=== PATIENT | female | born 1955 | race Caucasian/White ===

== ENCOUNTER → 2016-10-02 | Outpatient (CLI) | payer BC ==
[~2016-10-02] MED LIST: CEPH500C PO; CODCAP PO; DIPH1TAB98 PO; ESOM20CA PO; GARL1TAB13 PO; LUTE15CA PO; MAGN400T6 PO; SELE1TAB10 PO; SENNTAB23 PO; [UNRECOGNIZED DRUG - CODE] PO
--- NOTE | 2016-10-02 09:55 | DIAGNOSTIC IMAGING REPORT ---
RIGHT SHOULDER 3 VIEWS HISTORY: Right shoulder pain. COMPARISON: None. FINDINGS: There is no fracture or dislocation. Soft tissues are unremarkable. The medial clavicle is obscured by the patient's overlapping lead shield. Mild AC joint arthrosis. IMPRESSION: Mild AC joint arthrosis. No fracture or dislocation within the right shoulder. Electronically signed by: Slim Adame M.D. 10/02/2016 9:54 AM Dictated Date/Time: 10/02/2016 9:52 AM
--- NOTE | 2016-10-02 10:10 | DIAGNOSTIC IMAGING REPORT ---
RIGHT FOOT 3 VIEWS CLINICAL HISTORY: Right foot pain. FINDINGS: 3 views of the right foot are compared to study dated 10/05/2014. The skeletal structures are osteopenic. No fracture is seen. Mild arthritic change is noted at the first metatarsophalangeal joint. An os navicularis is incidentally noted. A dorsal calcaneal enthesophyte is observed. Chronic posttraumatic change and postoperative change is seen in the distal tibia and fibula. The overlying soft tissues are within normal limits. IMPRESSION: 1. No acute bony abnormality is seen in the right foot. 2. Osteopenia with mild degenerative as well as postoperative change as above. Electronically signed by: Carlos García M.D. 10/02/2016 10:08 AM Dictated Date/Time: 10/02/2016 10:07 AM
== END | disposition home or self-care (01) ==
LOC: C.RDSM 10:00
PROVIDERS: ATTEND Physician Assistant
DX: M85.871 Other specified disorders of bone density and structure, right ankle and foot (principal); M25.511 Pain in right shoulder

== ENCOUNTER → 2016-10-09 | Outpatient (CLI) | payer BC ==
[~2016-10-09] MED LIST changes: +GADAVIST IV PRN
--- NOTE | 2016-10-09 12:48 | DIAGNOSTIC IMAGING REPORT ---
RIGHT SHOULDER INJECTION UNDER FLUOROSCOPIC GUIDANCE CLINICAL HISTORY: Right shoulder pain. Injection for MR arthrogram. PROCEDURE: The risks, benefits, and alternatives to the procedure were discussed with the patient. Written informed consent was obtained. The patient was placed supine on the fluoroscopy table, and a right shoulder injection was performed under fluoroscopic guidance. The area was prepped and draped in the usual sterile fashion. The skin and soft tissues anesthetized with local 1% lidocaine. The right shoulder joint was accessed utilizing a 22-gauge needle, and approximately 6 cc of a mixture of gadolinium contrast, Optiray 300, and saline was injected into the joint space under fluoroscopic guidance. There was normal distention of the capsule. The procedure was well tolerated and without immediate complication. The patient was then transferred to MRI for MR arthrography. FLUOROSCOPY TIME: 14 seconds IMPRESSION: Unremarkable injection of the right shoulder under fluoroscopic guidance. Electronically signed by: Carlos García M.D. 10/09/2016 12:47 PM Dictated Date/Time: 10/09/2016 12:46 PM
--- NOTE | 2016-10-09 13:30 | DIAGNOSTIC IMAGING REPORT ---
POST GADOLINIUM MRI THE RIGHT SHOULDER CLINICAL HISTORY: Regressive right shoulder pain COMPARISON STUDY: Conventional radiographic study dated 10/02/2016 FINDINGS: There are no areas of marrow replacement to indicate occult fracture or bone bruise. The bicipital tendon appears normal. There is a sublabral foramen. There is a Moo complex present. There is contrast present within the subacromial bursa indicative of a full-thickness rotator cuff tear. There is irregularity of the undersurface of the supraspinatus and infraspinatus tendons. A full-thickness tear is visualized at the supraspinous footplate. There is mild articular irregularity of the superior lateral margin of the humeral head. No labral tears are visualized. IMPRESSION: 1. No evidence of occult fracture 2. No evidence of bicipital tendon tear or dislocation 3. Supraspinatus and infraspinatus tendinopathy with a full-thickness supraspinatus tear at the footplate 4. No evidence of labral tear. Electronically signed by: Jh Polo M.D. 10/09/2016 1:29 PM Dictated Date/Time: 10/09/2016 1:21 PM
== END | disposition home or self-care (01) ==
LOC: C.MRIBC 10:36
PROVIDERS: ATTEND Physician Assistant
DX: M25.511 Pain in right shoulder (principal); M75.41 Impingement syndrome of right shoulder

== ENCOUNTER 2017-01-04 15:22 | Emergency (ER) | payer BC, OTHER ==
[~2017-01-04] VITALS: Ht 162.6 cm; Wt 61.8 kg
[~2017-01-04 15:22] MED LIST changes: -CEPH500C PO; -GADAVIST IV PRN; -MAGN400T6 PO
[2017-01-04] MEDS ORDERED: HYDROmorphone INJ 2 MG/ML SYR/VIAL IV STA ×2 (15:40→17:15)
[2017-01-04] MEDS ORDERED: SODIUM CHLORIDE 0.9% 1000ML 1,000 ML IV ONE (15:40)
[2017-01-04] MEDS ORDERED: KETOROLAC TROMETHAMINE 30 MG/ML VIAL IV STA (15:40)
[2017-01-04] MEDS ORDERED: ACETAMINOPHEN 500 MG TAB PO STA (15:40)
[2017-01-04] MEDS ORDERED: ONDANSETRON INJ 2 MG/ML 2 ML VIAL IV STA (15:40)
[2017-01-04] MEDS ORDERED: PIPERACILLIN/TAZOBACTAM 4.5 GM/100ML D5W IV STA (15:40)
[2017-01-04 15:49] VITALS: O2SAT 98; Ht 162.6 cm; Wt 61.8 kg
--- NOTE | 2017-01-04 15:57 | DIAGNOSTIC IMAGING REPORT ---
CHEST ONE VIEW PORTABLE CLINICAL HISTORY: Sepsis dyspnea COMPARISON STUDY: 05/27/2015 FINDINGS: The bones soft tissues and hemidiaphragms are normal. The cardiomediastinal silhouette is normal. The lungs are clear. The pulmonary vasculature is normal. IMPRESSION: Negative chest. Electronically signed by: Tej Francis M.D. 01/04/2017 3:56 PM Dictated Date/Time: 01/04/2017 3:56 PM
[2017-01-04 16:23] LABS: BASO % 0.1 %; BASO ABS # 0.01 K/uL (0-0.2); COMPLETE YES; EOS % 0.2 %; IG% 0.1 %; LYMPH ABS # 1.25 K/uL (1.2-3.4); MEAN CELL VOLUME 87.4 fL (80-100); MEAN CORPUSCULAR HEMOGLOBIN 30.7 pg (25-34); MEAN CORPUSCULAR HGB CONC 35.1 g/dl (32-36); MEAN PLATELET VOLUME 10.5 fL (7.4-10.4); MONO % 8.3 %; NEUT % 78.3 %; PLATELET COUNT 161 K/uL (130-400); RED BLOOD COUNT 4.69 M/uL (4.2-5.4); WHITE BLOOD COUNT 9.63 K/uL (4.8-10.8)
[2017-01-04 16:38] LABS: PROTHROMBIN TIME (PATIENT) 10.7 SECONDS (9.0-12.0)
[2017-01-04 16:41] LABS: BUN/CREATININE RATIO 10.5 (10-20); CALCIUM 9.1 mg/dl (8.5-10.1); CREATININE 0.99 mg/dl (0.60-1.20); POTASSIUM 3.8 mmol/L (3.5-5.1)
[2017-01-04 16:44] LABS: ALB/GLOB RATIO 1.5 (0.9-2)
--- NOTE | 2017-01-04 16:55 | DIAGNOSTIC IMAGING REPORT ---
CT SCAN OF THE ABDOMEN AND PELVIS WITHOUT IV CONTRAST CLINICAL HISTORY: Flank pain and hematuria. COMPARISON STUDY: Abdominal CT dated 05/10/2015. TECHNIQUE: CT scan of the abdomen and pelvis is performed from the lung bases to the proximal femora. Images are reviewed in the axial, sagittal, and coronal planes. IV contrast was not administered for this examination as per the referring clinician. Automated dose control exposure was utilized. CT DOSE: 424.94 mGy.cm FINDINGS: Lung bases: The heart is normal in size and without pericardial effusion. The lung bases are clear noting dependent atelectasis. Liver: The unenhanced liver is normal in size, contour, and attenuation. There is no intrahepatic biliary ductal dilatation. Gallbladder: Surgically absent noting clips in the gallbladder fossa. Spleen: Normal in size and attenuation. There is a 10 mm densely calcified splenic artery aneurysm seen on image #67. Pancreas: Unenhanced pancreas is mildly atrophic and grossly unremarkable. Adrenal glands: Unremarkable. Kidneys: The unenhanced kidneys demonstrate mild cortical atrophy and are without hydronephrosis. There is a punctate nonobstructing calculus in the right lower pole. No left renal calculi are identified.. There is no evidence of contour deforming renal mass lesion. Abdominal vasculature: The abdominal aorta is normal in course and caliber noting mild to moderate atherosclerotic calcification. Bowel: The small bowel and colon are normal in course and caliber. There is moderate diverticulosis of the left colon without CT evidence of acute diverticulitis. Mild colonic fecal retention is observed. The appendix is well-visualized and normal. Peritoneum: There is no intraperitoneal free air or abdominal ascites. Lymphadenopathy: None. Pelvic viscera: The bladder, uterus, and adnexa are normal as visualized. Postoperative change is noted in the pelvis. Skeletal structures: The skeletal structures are osteopenic. No lytic or blastic lesions are seen. A hemangioma is incidentally noted in the body of L4. IMPRESSION: 1. There are no acute infectious or inflammatory findings in the abdomen or pelvis. 2. There is a punctate nonobstructing right renal calculus. 3. Moderate diverticulosis of the left colon without CT evidence of acute diverticulitis. 4. There is a 10 mm densely calcified splenic artery aneurysm. 5. Additional findings as above. Electronically signed by: Carlos García M.D. 01/04/2017 4:54 PM Dictated Date/Time: 01/04/2017 4:43 PM
[2017-01-04] MEDS ORDERED: HYDROmorphone INJ 0.5 MG/0.5 ML SYR IV STA (17:27)
[2017-01-04] MEDS ORDERED: MAGN400T6 PO (17:33)
[2017-01-04 17:38] LABS: URINE APPEARANCE CLEAR (CLEAR); URINE BILIRUBIN NEG (NEG); URINE COLOR YELLOW; URINE NITRITE NEG (NEG); URINE SPECIFIC GRAVITY 1.018 (1.000-1.030); UROBILINOGEN NEG (NEG); ZZUR CULT IF INDIC CLEAN CATCH NO
--- NOTE | 2017-01-04 17:41 | EMERGENCY ROOM VISIT NOTE ---
History Report prepared by Matthias: Paramjit Singleton Under the Supervision of: Dr. Carlos Pedersen M.D. First contact with patient: 15:32 Chief Complaint: KIDNEY STONE Stated Complaint: KIDNEY STONES History of Present Illness The patient is a 61 year old female who presents to the Emergency Room with complaints of worsening bilateral flank pain starting 3 weeks ago. She reports her pain as a 9/10 in severity and states the pain is worse on her right side. The patient states that she did not do anything about her pain because she has been in and out of court. She states that she normally sees Dr. Da Silva [facility] for her history of kidney stones and kidney problems, but could not get a hold of him yesterday. The patient states that she went to emergency care today but denies having any treatment done and was told to report to the ED. She reports that she has also been experiencing an intermittent fever for the last few weeks, hematuria, hypertension, and myalgia in her neck and muscles. The patient states that she started having abdominal pain yesterday and went to the bathroom when noticed more blood in her urine. The patient also reports that she went to go to work yesterday but collapsed on her porch due to her pain. She reports that she took a Tylenol for her fever. The patient states that she has been drinking fluid. The patient admits to an allergy to Morphine and Levaquin. She denies any cough or congestion. Source of History: patient Onset: three weeks ago Position: other (bilateral flank) Symptom Intensity: 9/10 Timing: worsening Modifying Factors (Relieving): tylenol Associated Symptoms: No cough Review of Systems See HPI for pertinent positives & negatives. A total of 10 systems reviewed and were otherwise negative. Past Medical & Surgical Medical Problems: (1) Diverticulitis (2) Diverticulosis (3) Gastritis (4) GERD (gastroesophageal reflux disease) (5) Kidney stones (6) Rhinitis Surgical Problems: (1) History of adenoidectomy (2) History of cholecystectomy (3) History of salpingo-oophorectomy (4) Hx of tonsillectomy Social History Smoking Status: Never Smoker Alcohol Use: none Marital Status: Occupation Status: employed Current/Historical Medications Scheduled Beta Carotene (B-Paris-T), 15 MG PO QAM Cephalexin Monohydrate (Keflex), 500 MG PO TID Cod Liver Oil (Cod Liver Oil 1250-135 Unit), 1 TAB PO QAM Garlic ( Garlic), 500 MG PO QAM Lutein-Zeaxanthin (Lutein), 1 TAB PO DAILY Selenium ( Selenium), 1 TAB PO QAM Sennosides-Docusate Sodium (Stool Softener), 1 TAB PO QAM Miscellaneous Medications Magnesium Oxide (Mag-Ox), 400 MG PO Allergies Coded Allergies: Iodinated Contrast Media (Verified Allergy, Intermediate, hives-IVP DYE, ) Latex1 -Allergic Contact Dermititis (Verified Allergy, Mild, , 01/04/17) Morphine (Verified Allergy, Mild, hives, 01/04/17) Quinolones (Verified Allergy, Mild, hives-AVELOX; CIPRO IS OK, 01/04/17) "PATIENT REPORTS NO ALLERGY TO CIPRO" PER SDS ORDER SCANNED 06/08/15 Honey Bee (Verified Allergy, Unknown, hives, 01/04/17) Physical Exam Vital Signs Date Time Temp Pulse Resp B/P (MAP) Pulse Ox O2 Delivery O2 Flow Rate FiO2 01/04/17 18:58 37.5 78 18 118/61 98 01/04/17 18:57 37.5 78 18 118/61 98 Room Air 01/04/17 17:32 81 18 118/61 98 Room Air 01/04/17 15:49 98 Room Air 01/04/17 15:27 38.6 90 18 124/69 98 Room Air Physical Exam GENERAL: Patient is in no acute distress. HEENT: No acute trauma, normocephalic atraumatic, mucous membranes moist, no nasal congestion, no scleral icterus. NECK: No stridor, no adenopathy, no meningismus, trachea is midline. LUNGS: Clear to auscultation bilaterally, no wheeze, no rhonchi, breath sounds equal. HEART: Without murmurs gallops or rubs, regular rate and rhythm. ABDOMEN: Soft, somewhat tender in left lower quadrant, bowel sounds positive, no hernias, no peritonitis. EXTREMITIES: No cyanosis or edema, full range of motion of all the joints without pain or difficulty, no signs for acute trauma. NEUROLOGIC: Oriented x 3, no acute motor or sensory deficits, no focal weakness. SKIN: No rash, no jaundice, no diaphoresis. Medical Decision & Procedures ER Provider Diagnostic Interpretation: Radiology results as stated below per my review and radiologist interpretation: CHEST ONE VIEW PORTABLE CLINICAL HISTORY: Sepsis dyspnea COMPARISON STUDY: 05/27/2015 FINDINGS: The bones soft tissues and hemidiaphragms are normal. The cardiomediastinal silhouette is normal. The lungs are clear. The pulmonary vasculature is normal. IMPRESSION: Negative chest. CT SCAN OF THE ABDOMEN AND PELVIS WITHOUT IV CONTRAST CLINICAL HISTORY: Flank pain and hematuria. COMPARISON STUDY: Abdominal CT dated 05/10/2015. TECHNIQUE: CT scan of the abdomen and pelvis is performed from the lung bases to the proximal femora. Images are reviewed in the axial, sagittal, and coronal planes. IV contrast was not administered for this examination as per the referring clinician. Automated dose control exposure was utilized. CT DOSE: 424.94 mGy.cm FINDINGS: Lung bases: The heart is normal in size and without pericardial effusion. The lung bases are clear noting dependent atelectasis. Liver: The unenhanced liver is normal in size, contour, and attenuation. There is no intrahepatic biliary ductal dilatation. Gallbladder: Surgically absent noting clips in the gallbladder fossa. Spleen: Normal in size and attenuation. There is a 10 mm densely calcified splenic artery aneurysm seen on image #67. Pancreas: Unenhanced pancreas is mildly atrophic and grossly unremarkable. Adrenal glands: Unremarkable. Kidneys: The unenhanced kidneys demonstrate mild cortical atrophy and are without hydronephrosis. There is a punctate nonobstructing calculus in the right lower pole. No left renal calculi are identified.. There is no evidence of contour deforming renal mass lesion. Abdominal vasculature: The abdominal aorta is normal in course and caliber noting mild to moderate atherosclerotic calcification. Bowel: The small bowel and colon are normal in course and caliber. There is moderate diverticulosis of the left colon without CT evidence of acute diverticulitis. Mild colonic fecal retention is observed. The appendix is well-visualized and normal. Peritoneum: There is no intraperitoneal free air or abdominal ascites. Lymphadenopathy: None. Pelvic viscera: The bladder, uterus, and adnexa are normal as visualized. Postoperative change is noted in the pelvis. Skeletal structures: The skeletal structures are osteopenic. No lytic or blastic lesions are seen. A hemangioma is incidentally noted in the body of L4. IMPRESSION: 1. There are no acute infectious or inflammatory findings in the abdomen or pelvis. 2. There is a punctate nonobstructing right renal calculus. 3. Moderate diverticulosis of the left colon without CT evidence of acute diverticulitis. 4. There is a 10 mm densely calcified splenic artery aneurysm. 5. Additional findings as above. Electronically signed by: Carlos García M.D. 01/04/2017 4:54 PM Dictated Date/Time: 01/04/2017 4:43 PM Electronically signed by: Tej Francis M.D. 01/04/2017 3:56 PM Dictated Date/Time: 01/04/2017 3:56 PM Laboratory Results 01/04/17 16:09 Red Blood Count 4.69, Mean Corpuscular Volume 87.4, Mean Corpuscular Hemoglobin 30.7, Mean Corpuscular Hemoglobin Concent 35.1, Mean Platelet Volume 10.5, Neutrophils (%) (Auto) 78.3, Lymphocytes (%) (Auto) 13.0, Monocytes (%) (Auto) 8.3, Eosinophils (%) (Auto) 0.2, Basophils (%) (Auto) 0.1, Neutrophils # (Auto) 7.54, Lymphocytes # (Auto) 1.25, Monocytes # (Auto) 0.80, Eosinophils # (Auto) 0.02, Basophils # (Auto) 0.01 01/04/17 16:09 Test 01/04/17 16:09 01/04/17 16:16 01/04/17 17:20 White Blood Count 9.63 K/uL (4.8-10.8) Red Blood Count 4.69 M/uL (4.2-5.4) Hemoglobin 14.4 g/dL (12.0-16.0) Hematocrit 41.0 % (37-47) Mean Corpuscular Volume 87.4 fL (80-100) Mean Corpuscular Hemoglobin 30.7 pg (25-34) Mean Corpuscular Hemoglobin Concent 35.1 g/dl (32-36) Platelet Count 161 K/uL (130-400) Mean Platelet Volume 10.5 fL (7.4-10.4) Neutrophils (%) (Auto) 78.3 % Lymphocytes (%) (Auto) 13.0 % Monocytes (%) (Auto) 8.3 % Eosinophils (%) (Auto) 0.2 % Basophils (%) (Auto) 0.1 % Neutrophils # (Auto) 7.54 K/uL (1.4-6.5) Lymphocytes # (Auto) 1.25 K/uL (1.2-3.4) Monocytes # (Auto) 0.80 K/uL (0.11-0.59) Eosinophils # (Auto) 0.02 K/uL (0-0.5) Basophils # (Auto) 0.01 K/uL (0-0.2) RDW Standard Deviation 42.6 fL (36.4-46.3) RDW Coefficient of Variation 13.3 % (11.5-14.5) Immature Granulocyte % (Auto) 0.1 % Immature Granulocyte # (Auto) 0.01 K/uL (0.00-0.02) Prothrombin Time 10.7 SECONDS (9.0-12.0) Prothromb Time International Ratio 1.0 (0.9-1.1) Activated Partial Thromboplast Time 26.8 SECONDS (21.0-31.0) Partial Thromboplastin Ratio 1.0 Anion Gap 8.0 mmol/L (3-11) Est Creatinine Clear Calc Drug Dose 50.3 ml/min Estimated GFR () 70.3 Estimated GFR (Non- 60.6 BUN/Creatinine Ratio 10.5 (10-20) Calcium Level 9.1 mg/dl (8.5-10.1) Total Bilirubin 0.8 mg/dl (0.2-1) Aspartate Amino Transf (AST/SGOT) 29 U/L (15-37) Alanine Aminotransferase (ALT/SGPT) 33 U/L (12-78) Alkaline Phosphatase 61 U/L (45-117) Total Protein 6.8 gm/dl (6.4-8.2) Albumin 4.1 gm/dl (3.4-5.0) Globulin 2.7 gm/dl (2.5-4.0) Albumin/Globulin Ratio 1.5 (0.9-2) Bedside Lactic Acid Venous 0.84 mmol/L (0.90-1.70) Urine Color YELLOW Urine Appearance CLEAR (CLEAR) Urine pH 8.0 (4.5-7.5) Urine Specific [place] 1.018 (1.000-1.030) Urine Protein NEG (NEG) Urine Glucose (UA) NEG (NEG) Urine Ketones NEG (NEG) Urine Occult Blood NEG (NEG) Urine Nitrite NEG (NEG) Urine Bilirubin NEG (NEG) Urine Urobilinogen NEG (NEG) Urine Leukocyte Esterase NEG (NEG) Urine WBC (Auto) 1-5 /hpf (0-5) Urine RBC (Auto) 0-4 /hpf (0-4) Urine Hyaline Casts (Auto) 1-5 /lpf (0-5) Urine Epithelial Cells (Auto) 5-10 /lpf (0-5) Urine Bacteria (Auto) NEG (NEG) Laboratory results reviewed by me. Medications Administered Medications (Trade) Dose Ordered Sig/Tono Route Start Time Stop Time Status Last Admin Dose Admin Sodium Chloride 1,000 ml @ 999 mls/hr Q1H1M ONCE IV 01/04/17 15:40 01/04/17 16:40 DC 01/04/17 16:16 999 MLS/HR Piperacillin Sod/ Tazobactam Sod (Zosyn Iv) 4.5 gm ONE STAT IV 01/04/17 15:40 01/04/17 15:45 DC 01/04/17 16:16 4.5 GM Acetaminophen (Tylenol Tab) 1,000 mg NOW STAT PO 01/04/17 15:40 01/04/17 15:45 DC 01/04/17 16:16 1,000 MG Ondansetron HCl (Zofran Inj) 4 mg NOW STAT IV 01/04/17 15:40 01/04/17 15:45 DC 01/04/17 16:17 4 MG Ketorolac Tromethamine (Toradol Inj) 30 mg NOW STAT IV 01/04/17 15:40 01/04/17 15:45 DC 01/04/17 16:18 30 MG Hydromorphone HCl (Dilaudid Inj) 0.5 mg NOW STAT IV 01/04/17 15:40 01/04/17 15:45 DC 01/04/17 16:18 0.5 MG Hydromorphone HCl (Dilaudid Inj) 0.5 mg NOW STAT IV 01/04/17 17:27 01/04/17 17:28 DC 01/04/17 17:31 0.5 MG Cephalexin Monohydrate (Keflex 500MG Home Pack) 1 homepack NOW ONCE PO 01/04/17 18:45 01/04/17 18:46 DC 01/04/17 18:56 1 HOMEPACK ED Course 1538: The patient was evaluated in room A10. A complete history and physical exam was performed. 1540: Dilaudid Injection 0.5 mg IV, Toradol Injection 30 mg IV, Zofran Injection 4 mg IV, Tylenol Tab 1000 mg PO, Zosyn Iv 4.5 mg IV, Sodium Chloride 1000 ml @ 999 mls/hr IV. 1716: I reevaluated the patient and she is resting comfortably. She is waiting on the imaging and lab results. 1727: Dilaudid Injection 0.5 mg IV. 1832: I reevaluated the patient. I discussed results and discharge instructions : She verbalized understanding and agreement. The patient is ready for discharge. Medication Reconciliation: I attest that I have personally reviewed the patient' s current medication list. Blood Pressure Screening: Patient was found to have normal blood pressure on screening and does not require follow-up. 1845: Cephalexin Monohydrate 1 homepack PO. Medical Decision The differential diagnosis includes but is not limited to: renal colic, pneumonia, pyelonephritis, diverticulitis, sepsis or bacteremia, renal failure, electrolyte imbalance, dehydration. There is no leukocytosis or concerning anemia. No significant electrolyte abnormality, kidney failure or hepatitis. Lactic acid level is not elevated making sepsis less likely. Urinalysis does not show infection. Urine culture and blood cultures are pending. Chest film does not show pneumonia or free air. Abdominal and pelvis CT does not show diverticulitis, no acute infectious process within the abdomen or pelvis. The patient was not found to have a ureteral stone or hydronephrosis. The patient received IV saline and oral Tylenol. She was given IV Toradol, IV Zofran and IV Dilaudid. She received IV Zosyn as antibiotic coverage. The patient feels well, I do think she can be discharged and she would like to go home. I'm going to prescribe Keflex for the possibility of a pyelonephritis. Certainly, she may have already passed a ureteral stone however , I was concerned because of the temperature elevation when she presented to the ER. Patient was encouraged to return for worsening symptoms or if not improving. She will follow with her doctors office. Of note, the patient left this ER and drove home, she was told not to drive as she had received narcotic pain medication. She refused to call a ride, and was adamant she was driving home, the charge nurse was advised. The police were contacted. Impression Primary Impression: Fever Additional Impression: Flank pain Scribe Attestation The scribe's documentation has been prepared under my direction and personally reviewed by me in its entirety. I confirm that the note above accurately reflects all work, treatment, procedures, and medical decision making performed by me. Departure Information Dispostion Home / Self-Care Prescriptions Cephalexin Monohydrate (Keflex) 500 Mg Cap 500 MG PO TID for 10 Days, #30 CAP 1 Refill Prov: Carlos Pedersen M.D. 01/04/17 Referrals Lucas Strange M.D. (PCP) Forms HOME CARE DOCUMENTATION FORM, IMPORTANT VISIT INFORMATION Patient Instructions My [facility] Additional Instructions stay well hydrated motrin or tylenol for pain and fever rest keflex 3x per day for 10 days follow with phyllis alvarez for a reheck return for worsening symptoms or if not improving Problem Qualifiers
[2017-01-04 17:54] LABS: MANUAL MICROSCOPIC REQUIRED? NO; REVIEW REQ? NO
[2017-01-04] MEDS ORDERED: CEPH500C PO (18:40)
[2017-01-04] MEDS ORDERED: CEPHALEXIN 500MG HOME PACK 1 EA BTL PO ONE (18:45)
[2017-01-04 18:58] VITALS: BP 118/61; PULSE 78; TEMP 37.5; O2SAT 98
== END 2017-01-04 18:58 | disposition home or self-care (01) ==
LOC: C.EDB 15:24 → C.EDA 18:58
DX: R10.30 Lower abdominal pain, unspecified (principal); R50.9 Fever, unspecified; K21.9 Gastro-esophageal reflux disease without esophagitis; K57.90 Diverticulosis of intestine, part unspecified, without perforation or abscess without bleeding; K57.92 Diverticulitis of intestine, part unspecified, without perforation or abscess without bleeding; Z90.49 Acquired absence of other specified parts of digestive tract; Z79.899 Other long term (current) drug therapy; Z98.890 Other specified postprocedural states; Z88.5 Allergy status to narcotic agent; Z88.8 Allergy status to other drugs, medicaments and biological substances; Z91.040 Latex allergy status; Z91.041 Radiographic dye allergy status

== ENCOUNTER → 2017-08-17 | Outpatient (CLI) | payer OTHER ==
[~2017-08-17] MED LIST changes: +CEPH500C PO; -DIPH1TAB98 PO; -ESOM20CA PO; +MAGN400T6 PO
== END | disposition home or self-care (01) ==
LOC: C.LAB 14:25
PROVIDERS: ATTEND Nurse Practitioner Adult Health
DX: R35.0 Frequency of micturition (principal); R39.15 Urgency of urination; N39.0 Urinary tract infection, site not specified

== ENCOUNTER → 2017-11-13 | Outpatient (CLI) | payer OTHER ==
--- NOTE | 2017-11-13 21:01 | DIAGNOSTIC IMAGING REPORT ---
LUMBAR SPINE W/O CONTRAST CLINICAL HISTORY: 62 years-old Female with LOWER BACK PAIN. Acute low back pain with radiation to the left pelvis. Patient reports acute dysuria COMPARISON: MRI of the pelvis of same day, CT abdomen and pelvis 01/04/2017 TECHNIQUE: Multiplanar, multi sequence MRI of the lumbar spine was performed without intravenous contrast. FINDINGS: No focal bone marrow edema, acute fracture or subluxation. 1.5 cm perineural root sleeve cyst is noted on the left at S1-S2 nicely seen on image 8 of series 5. The conus medullaris terminates at the L1-L2 interspace. Signal within the imaged thoracic spinal cord appears normal. The cauda equina appear to be within normal limits. Study is mildly motion degraded. No aortic aneurysm or adenopathy. No acute process of the imaged abdomen, pelvis or paraspinal tissues. Mild disc desiccation is noted at several levels with relative preservation of the T12-L1 and L5-S1 levels. T12-L1: No central canal or neural foraminal stenosis. L1-L2: No central canal or neural foraminal stenosis. L2-L3: Small circumferential annular disc bulge with mild facet arthrosis and ligamentum flavum thickening. Flattening of the ventral thecal sac without significant central canal narrowing. There is mild right foraminal stenosis. The left foramen is patent. L3-L4: Small circumferential annular disc bulge with mild facet arthrosis and ligamentum flavum thickening. There is mild central canal and mild right foraminal narrowing. Left foramen is generally patent. L4-L5: Small circumferential annular disc bulge favoring the right lateral recess with moderate facet arthrosis and ligamentum flavum thickening. Flattening of the ventral thecal sac without significant central canal narrowing. Mild right foraminal stenosis. Left foramen is patent. L5-S1: Mild facet arthrosis and ligamentum flavum thickening without central canal or foraminal narrowing. IMPRESSION: 1. No acute fracture or focal bone marrow edema. 2. Mild discogenic degenerative changes and facet arthrosis of the lumbar spine, most pronounced at L2-L3 through L4-L5. 3. At L3-L4, there is a small circumferential annular disc bulge with mild facet arthrosis and ligamentum flavum thickening causing mild central canal and mild right foraminal narrowing. 4. 1.5 cm perineural root sleeve cyst on the left at S1-S2. The above report was generated using voice recognition software. It may contain grammatical, syntax or spelling errors. Electronically signed by: Dez Da Silva M.D. 11/13/2017 9:00 PM Dictated Date/Time: 11/13/2017 8:52 PM
--- NOTE | 2017-11-13 21:10 | DIAGNOSTIC IMAGING REPORT ---
PELVIS WITHOUT CONTRAST (MRI) HISTORY: 62 years-old Female [id number] chronic low back pain with urinary incontinence status post prior injury. Radiation to the left pelvis. COMPARISON: MRI lumbar spine of same day, CT abdomen and pelvis 01/04/2017 TECHNIQUE: Multiplanar multisequence MRI of the pelvis was obtained without contrast. 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 Anteflexed uterus. Indeterminate 6 mm cystic focus involves the posterior fundal myometrium. Indeterminate 8 mm cystic focus of the left adnexum. No aortic aneurysm. Iliac vessels appear patent. No acute intrapelvic abnormality identified. No focal soft tissue edema identified. No intramuscular edema or evidence of bursitis. There is only minimal edema about the gluteal insertion sites adjacent to the bilateral greater trochanters suggesting enthesitis. Mild degenerative changes about the bilateral femoral acetabular joints without obvious labral tear identified. No sacral fracture. No erosive changes of the SI joints. The bilateral sciatic nerves appear unremarkable. There is trace fluid at the right hamstring attachment site adjacent to the ischial tuberosity. IMPRESSION: 1. No acute abnormality of the pelvis identified. 2. Mild enthesitis of the bilateral gluteal insertion sites adjacent to the greater trochanters. Trace fluid is noted at the right hamstring attachment site about the ischial tuberosity suggesting tendinosis. 3. No focal bone marrow or intramuscular edema. 4. Colonic diverticulosis. The above report was generated using voice recognition software. It may contain grammatical, syntax or spelling errors. Electronically signed by: Dez Da Silva M.D. 11/13/2017 9:09 PM Dictated Date/Time: 11/13/2017 9:00 PM
== END | disposition home or self-care (01) ==
LOC: C.MRI 18:33
PROVIDERS: ATTEND Physician Assistant Medical
DX: M54.5 Low back pain (principal); M47.897 Other spondylosis, lumbosacral region; R30.0 Dysuria